=== PATIENT | female | born 1990 | race Caucasian/White ===

== ENCOUNTER 2016-12-14 23:10 | Emergency (ER) | payer BC ==
[~2016-12-14] VITALS: Ht 160 cm; Wt 51.7 kg
[~2016-12-14 23:10] MED LIST: CETI10CA19 PO; CIPR-213 PO; LACT1CAP79; NITR100C4 PO; OMEP20TA2 PO; PHEN-779 PO
--- OUTSIDE RECORDS SUMMARY | 2016-12-14 23:15 | XMS REPORT | Continuity of Care Document ---
Author Author [facility] Organization [facility] Address Unknown Phone Unavailable Support Name Relationship Address Phone MARLA BENNETT MD Caregiver [address] [place] [address] [place] [phone] BORIS WOODALL DO Caregiver [facility] [address] [place], [place] [id number] CHANNING COURTNEY Next Of Kin [address] [place], [place] [id number] Insurance Providers Payer Name Policy Number Subscriber Name Relationship Blue Cross Other [id number] Varsha Courtney 18 Self Blue Cross Federal [id number] Channing Courtney 19 Child Advance Directives Directive Response Recorded Date/Time Advanced Directives Type None 01/07/14 3:35am Problems Medical Problems Problem Onset Date Status Abdominal Pain unspecified site Unknown Active Diarrhea Unknown Active Vomiting Alone Unknown Active Abdominal Pain unspecified site Unknown Active Diarrhea Unknown Active Vomiting Alone Unknown Active Facial and Lip Swelling Unknown Active Alcoholic gastritis Unknown Active Abdominal pain Unknown Active GERD (gastroesophageal reflux disease) Unknown Active GERD (gastroesophageal reflux disease) Unknown Active Bacterial vaginitis Unknown Active Ovarian cyst Unknown Active Bacterial vaginitis Unknown Active Medications Medication Dose Route Sig Days/Qty Instructions Order Date Discontinued Date Status Ethinyl Estradiol/Drospirenone 08/01/08 10/23/10 Discontinued [Z-Pack] 08/01/08 04/18/09 Discontinued Cefdinir 1 Cap PO TWICE A DAY 10/23/10 04/18/11 Discontinued Norethindrone A-E Estradiol 1 Tab PO DAILY 10/23/10 02/23/12 Discontinued Meloxicam 7.5 Mg PO DAILY 04/18/11 09/18/11 Discontinued Norgestimate-Ethinyl Estradiol 1 Tab PO DAILY 02/23/12 Active Cranberry Extract 200 Mg PO DAILY 01/07/14 Active Multivitamins 1 Tab PO DAILY 01/07/14 Active Omeprazole Magnesium 1 Tab PO BEDTIME 10 Days 05/07/14 Active Famotidine 1 Tab PO TWICE A DAY 5 Days 05/07/14 Active Loratadine BEDTIME 05/14/14 Active Nitrofurantoin Monohyd/M-Cryst 1 Cap PO TWICE DAILY WITH MEALS Take 2 ( 100 mg) capsules, by mouth, twice daily with meals. 05/14/14 Active Metronidazole 500 Mg PO EVERY 12 HOURS 7 Days 05/14/14 Active Naproxen 500 Mg PO TWICE A DAY 20 Qty 05/14/14 Active Ondansetron 4 Mg PO Q6H/0300,0900,1500,2100 20 Qty Oral disintegrating tablet 05/14/14 Active Social History Social History Problem Response Recorded Date/Time Smoking Status Never smoker 01/07/2014 3:35am Hx Substance Use No 05/14/2014 11:13am Hx Alcohol Use Y social 05/14/2014 11:13am Query Response Start Date Stop Date Smoking Status Never smoker Hospital Discharge Instructions No hospital discharge instructions. Plan of Care No plan of care. Functional Status Query Response Date Recorded Physical Hygiene Self May 14, 2014 11:13am Disabilities None May 14, 2014 11:13am Devices Used None May 14, 2014 11:13am Dressing Self May 14, 2014 11:13am Ambulation Self May 14, 2014 11:13am Diet Self May 14, 2014 11:13am Mental Status Alert Oriented May 14, 2014 11:13am Disabilities None May 14, 2014 11:13am Devices Used None May 14, 2014 11:13am Physical Hygiene Self May 14, 2014 11:13am Dressing Self May 14, 2014 11:13am Ambulation Self May 14, 2014 11:13am Diet Self May 14, 2014 11:13am Allergies, Adverse Reactions, Alerts Allergen Type Severity Reaction Status Last Updated Sulfamethoxazole Allergy Unknown Active 05/14/14 Trimethoprim Allergy Unknown Active 05/14/14 Immunizations Name Given Type Hx Influenza Vaccination Y AUG 2013 Historical Hx Tetanus, Diptheria, Pertussis N UNSURE Historical Hx Influenza Vaccination Y AUG 2013 Historical Hx Tetanus, Diptheria, Pertussis N UNSURE Historical Vital Signs Acute Vital Signs Vital Response Date/Time Temperature (Fahrenheit) 97.6 deg F (96.8 - 99.1) Temperature (Calculated Celsius) 36.67759 degrees C (36.0 - 37.3) Pulse Rate (adult) 84 bpm (60 - 100) Respiratory Rate 20 breaths/min (10 - 20) Blood Pressure 100/57 mm Hg Height 5 ft 3 in Weight 112 lb Body Mass Index 19.0 kg/m^2 Results Test Source Date Result Interp. Ref. Range Comments Activated Partial Thromboplast Time May 07, 2014 10:04pm 26.3 SEC N 24-36 Ordering r/o VTE Yes Alanine Aminotransferase (ALT/SGPT) May 14, 2014 12:15pm 27 U/L N 9-52 Albumin May 14, 2014 12:15pm 4.5 G/DL N 3.5-5.0 Albumin/Globulin Ratio May 14, 2014 12:15pm 1.8 RATIO N 1.1-2.2 Alcohol, Quantitative January 07, 2014 4:15am 21 MG/DL - Alkaline Phosphatase May 14, 2014 12:15pm 50 U/L N 38-126 Amylase Level May 14, 2014 12:15pm 89 U/L N 30-110 Anion Gap May 14, 2014 12:15pm 14 MEQ/L N 5-15 Aspartate Amino Transf (AST/SGOT) May 14, 2014 12:15pm 21 U/L N 14 -36 BUN/Creatinine Ratio May 14, 2014 12:15pm 13 RATIO N 6-26 Band Neutrophils # May 06, 2013 12:10am 0.0 T/MM3 - Band Neutrophils % May 06, 2013 12:10am 0.0 % N 0-6 Basophils # (Auto) May 14, 2014 12:15pm 0.0 T/MM3 N 0-0.2 Basophils (%) (Auto) May 14, 2014 12:15pm 0.3 % N 0-2 Blood Urea Nitrogen May 14, 2014 12:15pm 10.0 MG/DL N 7-17 C-Reactive Protein August 01, 2008 9:45pm 56.2 MG/L H 0-9 Calcium Level May 14, 2014 12:15pm 10.0 MG/DL N 8.4-10.2 Calculated Osmolality May 14, 2014 12:15pm 275 MOSM/KG N 261-280 Carbon Dioxide Level May 14, 2014 12:15pm 26 MEQ/L N 22-30 Chemistry Specimen Hemolysis May 14, 2014 12:15pm < 15 0-25 0- 25: No Hemolysis.26-70: Slight Hemolysis - can falsely elevate K and Urine Protein. 71-285: Moderate Hemolysis - can falsely elevate K, Troponin I, CA 19-9, PTH, CSF GLucose, and Urine Protein, and can falsely decrease Phenytoin. 286-999: Gross Hemolysis - can falsely elevate K, Troponin I, CA 19-9, PTH, CSF Glucose, and Urine Protine, and can falsely decrease Phenytoin. Recommend specimen recollection. Chlamydia trachomatis Amplified DNA April 01, 2012 2:16am Ref lab rpt scanned - --- 04/04/12 1609 ---CHLAMDNA previously reported as: SENT OUT Chloride Level May 14, 2014 12:15pm 104 MEQ/L N 98-107 Creatinine May 14, 2014 12:15pm 0.8 MG/DL N 0.7-1.2 D-Dimer May 07, 2014 10:04pm 151 NG/ML N 0-224 <224 NG/ML= PRESUMPTIVE NEGATIVE FOR PE OR DVT>224 NG/ML=ADDITIONAL EVALUATION FOR PE OR DVT RECOMMENDED Eosinophils # (Auto) May 14, 2014 12:15pm 0.0 T/MM3 N 0-0.5 Eosinophils (%) (Auto) May 14, 2014 12:15pm 0.1 % N 0-4 Erythrocyte Sedimentation Rate August 01, 2008 9:45pm 17 MM/HR - Globulin May 14, 2014 12:15pm 2.5 G/DL N 2.4-3.6 Glomerular Filtration Rate Calc May 14, 2014 12:15pm 89 - Glucose Level May 14, 2014 12:15pm 79 MG/DL N 65-110 Hematocrit May 14, 2014 12:15pm 39.9 % N 36-46 Hemoglobin May 14, 2014 12:15pm 13.4 GM/DL N 12-16 Icterus Index May 14, 2014 12:15pm < 2 0-7 Immature Granulocyte # (Auto) May 14, 2014 12:15pm 0.01 T/MM3 N 0.00-0.03 Immature Granulocyte % (Auto) May 14, 2014 12:15pm 0.1 % N 0.0- 0.5 Lab Scanned Report April 04, 2012 4:14pm REFERENCE LAB [id number] - Lipase May 14, 2014 12:15pm 147 U/L N 23-300 Lymphocytes # (Auto) May 14, 2014 12:15pm 1.3 T/MM3 N 1-4.8 Lymphocytes # (Manual) May 06, 2013 12:10am 0.6 T/MM3 L 1-4.8 Lymphocytes % (Manual) May 06, 2013 12:10am 6.0 % L 23-45 Lymphocytes (%) (Auto) May 14, 2014 12:15pm 18.6 % L 23-45 Magnesium Level May 07, 2014 10:04pm 1.9 MG/DL N 1.6-2.3 Mean Corpuscular Hemoglobin May 14, 2014 12:15pm 30.9 UUG N 26-34 Mean Corpuscular Hemoglobin Concent May 14, 2014 12:15pm 33.6 GM/DL N 31-37 Mean Corpuscular Volume May 14, 2014 12:15pm 91.9 UM3 N 80-100 Mean Platelet Volume May 14, 2014 12:15pm 9.6 UM3 N 9.4-12.4 Monocytes # (Auto) May 14, 2014 12:15pm 0.8 T/MM3 N 0-0.8 Monocytes # (Manual) May 06, 2013 12:10am 0.6 T/MM3 N 0-0.8 Monocytes % (Manual) May 06, 2013 12:10am 6.0 % N 0-9.0 Monocytes (%) (Auto) May 14, 2014 12:15pm 11.0 % H 0-9.0 PI-Utq-C-Type Natriuretic Peptide May 07, 2014 10:04pm 68 PG/ML N 0-175 Rule in cut points: <50 years old=450; 50-75 years old=900; >75 years old=1800; When utilizing ProBNP rule-in cut points, adjustment for impaired renal function is typically not required. Neutrophils # (Auto) May 14, 2014 12:15pm 5.0 T/MM3 N 1.8-7.7 Neutrophils # (Manual) May 06, 2013 12:10am 8.7 T/MM3 H 1.8-7.7 Neutrophils % (Manual) May 06, 2013 12:10am 88.0 % H 33-66 Neutrophils (%) (Auto) May 14, 2014 12:15pm 69.9 % H 33-66 Platelet Count May 14, 2014 12:15pm 245 T/MM3 N 130-400 Potassium Level May 14, 2014 12:15pm 4.0 MEQ/L N 3.6-5 Prothromb Time International Ratio May 07, 2014 10:04pm 0.96 N 0.81-1.09 THERAPUTIC RANGE=2.00-3.00 FOR ANTI-THROMBOSIS THERAPUTIC RANGE=2.50 -3.50 FOR IMPLANTED VALVE RDW Standard Deviation May 14, 2014 12:15pm 40.0 FL N 36.9-50.2 Red Blood Count May 14, 2014 12:15pm 4.34 M/MM3 N 4.00-5.20 Sodium Level May 14, 2014 12:15pm 144 MEQ/L N 134-144 Total Bilirubin May 14, 2014 12:15pm 0.70 MG/DL N 0.20-1.30 Total Protein May 14, 2014 12:15pm 7.0 G/DL N 6.3-8.2 Troponin I May 07, 2014 10:04pm < 0.012 ng/ml 0-0.12 Turbidity May 14, 2014 12:15pm < 20 0-20 Urinalysis Comment May 14, 2014 12:00pm Microscopic not ind. - Has specimen been collected/obtained? Y Urine Bacteria March 10, 2012 3:48am 1+ H - Has specimen been collected/ obtained? Y Urine Bilirubin May 14, 2014 12:00pm Negative - Has specimen been collected/obtained? Y Urine Blood May 14, 2014 12:00pm Negative - Has specimen been collected/obtained? Y Urine Collection Type May 14, 2014 12:00pm Cleancatch-midstream - Has specimen been collected/obtained? Y Urine Color May 14, 2014 12:00pm Yellow - Has specimen been collected/obtained? Y Urine Culture Indicated May 24, 2012 11:52am Cult reflexed &setup - Has specimen been collected/obtained? Y Urine Glucose (UA) May 14, 2014 12:00pm Negative - Has specimen been collected/obtained? Y Urine Ketones May 14, 2014 12:00pm 1+ H - Has specimen been collected/obtained? Y Urine Leukocyte Esterase May 14, 2014 12:00pm Negative - Has specimen been collected/obtained? Y Urine Microscopic Not Indicated October 23, 2010 6:59pm Not indicated - Has specimen been collected/obtained? Y Urine Nitrite May 14, 2014 12:00pm Negative - Has specimen been collected/obtained? Y Urine Protein May 14, 2014 12:00pm Negative - Has specimen been collected/obtained? Y Urine RBC May 24, 2012 11:52am 5-10 /HPF H - Has specimen been collected/obtained? Y Urine Specific [place] May 14, 2014 12:00pm 1.010 L - Has specimen been collected/obtained? Y Urine Squamous Epithelial Cells May 24, 2012 11:52am Few - Has specimen been collected/obtained? Y Urine Turbidity May 14, 2014 12:00pm Clear - Has specimen been collected/obtained? Y Urine Urobilinogen May 14, 2014 12:00pm 0.2 EU/DL - Has specimen been collected/obtained? Y Urine WBC May 24, 2012 11:52am 5-10 /HPF H - Has specimen been collected/obtained? Y Urine pH May 14, 2014 12:00pm 6.0 - Has specimen been collected /obtained? Y White Blood Count May 14, 2014 12:15pm 7.1 T/MM3 N 4.5-11.0 Wet Prep Cervix May 14, 2014 1:05pm Urine Culture Urine, Clean Catch Voided May 24, 2012 12:09pm Escherichia Coli Name: VARSHA COURTNEY Unit #: [id number] : 1990 Sex: F Loc / Svc: ED DOS: 05/14/14 Signed Report #: [id number] DIAGNOSTIC IMAGING REPORT TYPE OF EXAM: US TRANSVAGINAL (NON-OB) Dictated By: ABRAM KHALIL MD INDICATION: ITS.REASON: abd pain, right side pain US TRANSVAGINAL (NON-OB): Comparison: CT abdomen and pelvis dated May 05, 2013 FINDINGS: Transvaginal and transabdominal pelvic imaging was performed. The uterus measures 7.5 x 2.9 x 4.2 cm. The parenchyma is homogeneous without fibroids. The endometrial stripe measures 2 mm in thickness. There is no evidence of focal endometrial mass. Both ovaries are identified. The right ovary measures 2.5 x 2.4 x 2.1 cm. The left ovary measures 3.8 x 2.6 x 2.7 cm. There are no abnormal adnexal masses detected. 3.3 cm simple appearing left ovarian cyst. Moderate free fluid in the pelvis. IMPRESSION: Probable ovarian cyst rupture otherwise unremarkable exam. . Procedures No known history of procedures. Encounters Encounter Location Date/Time Registered Emergency Room [facility] 05/14/14 10:59am Departed Emergency Room [facility] 05/07/14 9:14pm Recent Diagnosis
--- OUTSIDE RECORDS SUMMARY | 2016-12-14 23:15 | XMS REPORT | Continuity of Care Document ---
Author Author [facility] Organization [facility] Address Unknown Phone Unavailable Care Team Providers Care Decator Operator Name Role Phone BORIS WOODALL DO Primary Care Physician [phone] Insurance Providers Guarantor Varsha Fuentes Address [address] [place] [address] Email [email or web address] Payer Blue Cross Other Policy Number [id number] Subscriber's Name Varsha Fuentes Relationship 18 Self Group Number [id number] Advance Directives Directive Response Recorded Date/Time Advanced Directives Type None 01/07/14 3:35am Chief Complaint and Reason for Visit Chief Complaint Female Urogenital Problems Reason for Visit Dysuria Problems Active Problems Medical Problem Onset Date Status Abdominal Pain unspecified site Unknown Acute Abdominal Pain unspecified site Unknown Acute Abdominal pain Unknown Acute Alcoholic gastritis Unknown Acute Bacterial vaginitis Unknown Acute Bacterial vaginitis Unknown Acute Diarrhea Unknown Acute Diarrhea Unknown Acute Facial and Lip Swelling Unknown Acute GERD (gastroesophageal reflux disease) Unknown Acute GERD (gastroesophageal reflux disease) Unknown Acute Ovarian cyst Unknown Acute pain Unknown Acute Vomiting Alone Unknown Acute Vomiting Alone Unknown Acute Past Problems Medical Problem Onset Date Acute bronchitis Unknown Dysuria Unknown Dysuria Unknown Dysuria Unknown Gastroenteritis and colitis, viral Unknown Gastroenteritis and colitis, viral Unknown Headache Unknown Migraine Unknown Nausea Unknown Right middle ear infection Unknown Sinusitis Unknown UTI (urinary tract infection) Unknown Viral pharyngitis Unknown Medications Current Home Medications Medication Dose Units Route Directions Days Qty Instructions Start Date Cetirizine Hcl (Zyrtec) 10 Mg Capsule 1 Cap Oral Daily 02/18/16 Ciprofloxacin Hcl (Cipro) 250 Mg Tablet 250 Mg Oral Twice A Day 7 Days [address] Ignacio Olsen [employer] [facility] [facility] [address] [place] [address] 12/14/16 Lactobacillus Rhamnosus Gg (Culturelle) 1 Each Cap.sprink Daily 05/11/16 Omeprazole Magnesium (Prilosec Otc) 20 Mg Tablet. 1 Tab Oral Bedtime for Acid Reflux 02/18/16 Past Home Medications Medication Directions Ordered Status Cefdinir (Omnicef) 300 Mg Capsule, 1 Cap Oral Twice A Day 10/23/10 Discontinued Cranberry Extract (Cranberry) 200 Mg Capsule, 200 Mg Oral Daily 01/07/14 Discontinued Ethinyl Estradiol/Drospirenone (Ramila 28 Tablet) 1 Tab Tablet, 08/01/08 Discontinued Famotidine (Pepcid Ac) 20 Mg Tablet, 1 Tab Oral Twice A Day 05/07/14 Discontinued Loratadine (Claritin) 10 Mg Capsule, Bedtime 05/14/14 Discontinued Meloxicam (Mobic) 7.5 Mg Tablet, 7.5 Mg Oral Daily 04/18/11 Discontinued Metronidazole (Flagyl) 500 Mg Tablet, 500 Mg Oral Every 12 Hours 05/14/14 Discontinued Multivitamins (Multivitamin) 1 Tab Tablet, 1 Tab Oral Daily 01/07/14 Discontinued Naproxen 500 Mg Tablet, 500 Mg Oral Twice A Day 05/14/14 Discontinued Nitrofurantoin Monohyd/M-Cryst (Macrobid 100 Mg Capsule) 100 Mg Capsule, 1 Cap Oral Twice Daily With Meals 05/14/14 Discontinued Norethindrone A-E Estradiol (Loestrin) 1 Tab Tablet, 1 Tab Oral Daily Discontinued Omeprazole Magnesium (Prilosec Otc) 20 Mg Tablet., 1 Tab Oral Bedtime 05/07 Discontinued Ondansetron (Zofran Odt) 4 Mg Tab.rapdis, 4 Mg Oral Q6h/0300,0900,1500,2100 05/14/14 Discontinued Z-Pack , 08/01/08 Discontinued Social History Social History Problem Response Recorded Date/Time Onset Date Status Hx Substance Use No 05/11/2016 9:06am Not Applicable Not Applicable Hx Alcohol Use No 05/11/2016 9:06am Not Applicable Not Applicable Tobacco Usage none 05/08/2014 5:58am Not Applicable Not Applicable Query Response Start Date Stop Date Smoking Status Never smoker Hospital Discharge Instructions No hospital discharge instructions. Plan of Care Discharge Date 12/14/16 8:00pm Disposition 01 DISCHARGED HOME, SELF-CARE Condition at Discharge Stable Instructions/Education Provided Urinary Tract Infection in Women (ED) Prescriptions See Medication Section Referrals BORIS WOODALL DO Address: [address] [address] Additional Instructions/Education Take Cipro as directed. You may use Pyridium that you have not used in been prescribed in the past if needed. Increase her water intake. Follow with your primary care provider by phone tomorrow for recheck within the week. Functional Status No functional status results. Allergies, Adverse Reactions, Alerts No known allergies. Immunizations Query Response on File Recorded Date/Time Hx Influenza Vaccination Y AUG 2013 05/14/14 11:13am Hx Tetanus, Diptheria, Pertussis N UNSURE 05/14/14 11:13am Hx Influenza Vaccination Y AUG 2013 05/14/14 11:13am Hx Tetanus, Diptheria, Pertussis N UNSURE 05/14/14 11:13am Influenza Vaccine Hx 06/1412/14/16 7:39pm Tetanus Diptheria Vaccine History UP TO DATE 12/14/16 7:39pm Vital Signs Acute Vital Signs Vital Response Date/Time Temperature (Fahrenheit) 98.4 deg F (96.8 - 99.1) 12/14/2016 7:34pm Temperature (Calculated Celsius) 36.32896 degrees C (36.0 - 37.3) 12/14/2016 7:34pm Pulse Rate (adult) 75 bpm (60 - 100) 12/14/2016 7:34pm Respiratory Rate 16 breaths/min (10 - 20) 10/02/2016 2:51pm O2 Sat by Pulse Oximetry 99 % (90 - 100) 12/14/2016 7:34pm Blood Pressure 97/62 mm Hg 12/03/2016 3:06pm Height (Feet) 5 feet 12/03/2016 3:00pm Height (Inches) 63.00 inches 12/14/2016 7:34pm Weight (Kilograms) 61.900 kg 12/14/2016 7:34pm Body Mass Index (BMI) 24.0 12/14/2016 7:34pm Results Laboratory Results Test Name Result Units Flags Reference Collection Date/Time Result Date/ Time Comments Influenza Type A Antigen NEGATIVE NEGATIVE 10/02/2016 3:15pm 2016 3:21pm Negative for Flu A protein antigen. Assay sensitivity is 90%. Influenza Type B Antigen NEGATIVE NEGATIVE 10/02/2016 3:15pm 2016 3:21pm Negative for Flu B protein antigen. Assay sensitivity is 90%. Urine Collection Type CLEANCATCH-MIDSTREAM 12/14/2016 7:41pm 2016 7:46pm Urine Color YELLOW YELLOW 12/14/2016 7:41pm 12/14/2016 7:46pm Urine Turbidity CLOUDY CLEAR 12/14/2016 7:41pm 12/14/2016 7:46pm Urine Specific [place] 1.020 1.015-1.025 12/14/2016 7:41pm 2016 7:46pm Urine pH 6.0 5.0-8.0 12/14/2016 7:41pm 12/14/2016 7:46pm Urine Leukocyte Esterase 2+ A NEGATIVE 12/14/2016 7:41pm 12/14/2016 7: 46pm Urine Nitrite NEGATIVE NEGATIVE 12/14/2016 7:41pm 12/14/2016 7:46pm Urine Protein TRACE A NEGATIVE 12/14/2016 7:41pm 12/14/2016 7:46pm Urine Glucose (UA) NEGATIVE NEGATIVE 12/14/2016 7:41pm 12/14/2016 7: 46pm Urine Ketones NEGATIVE NEGATIVE 12/14/2016 7:41pm 12/14/2016 7:46pm Urine Urobilinogen 2.0 EU/DL NORMAL 12/14/2016 7:41pm 12/14/2016 7: 46pm Urine Bilirubin 1+ A NEGATIVE 12/14/2016 7:41pm 12/14/2016 7:46pm Urine Blood TRACE A NEGATIVE 12/14/2016 7:41pm 12/14/2016 7:46pm Procedures No known history of procedures. Encounters Encounter Location Arrival/Admit Date Discharge/Depart Date Attending Provider Departed Emergency Room [facility] 12/14/16 7:11pm 12/14/16 8: 00pm KATHE MURRAY APRN Departed Emergency Room [facility] 12/03/16 2:42pm 12/03/16 3: 24pm KATHE MURRAY APRN Departed Emergency Room [facility] 10/02/16 2:47pm 10/02/16 3: 24pm FER BOWLES APRN Recent Diagnosis
--- OUTSIDE RECORDS SUMMARY | 2016-12-14 23:15 | XMS REPORT | Continuity of Care Document ---
Author Author [facility] Organization [facility] Address Unknown Phone Unavailable Allergies Active Description Code Type Severity Reaction Onset Reported/Identified Relationship to Patient Clinical Status Yes No Known Allergies No Known Allergies Drug Allergy Unknown N/A 10/20/2015 Medications Problems Date Dx Coded Attending Type Code Diagnosis Diagnosed By 11/21/2015 Lacie CAI, Mario Taylor D62 ACUTE POSTHEMORRHAGIC ANEMIA 11/21/2015 Lacie CAI, Mario Taylor O70.0 FIRST DEGREE PERINEAL LACERATION DURING DELIVERY 11/21/2015 Mario Medellin MD O99.02 ANEMIA COMPLICATING CHILDBIRTH 11/21/2015 Mario Medellin MD Z34.93 ENCNTR FOR SUPRVSN OF NORMAL PREG, UNSP, THIRD TRIMESTER 11/21/2015 Mario Medellin MD Z37.0 SINGLE LIVE 11/21/2015 Mario Medellin MD Z3A.38 38 WEEKS GESTATION OF Procedures Code Description Performed By Performed On [id number] REPAIR PERINEUM SKIN, EXTERNAL APPROACH Mario Medellin MD 11/21/2015 [id number] DELIVERY OF PRODUCTS OF CONCEPTION, EXTERNAL APPRO Mario Medellin MD 11/21/2015 Results Test Result Range [place] - 10/20/15 14:45 Microbiology URINALYSIS, ROUTINE - 10/20/15 14:50 UA LEUKOCYTE ESTERASE DIPSTICK 1+ NEGATIVE UA NITRITE DIPSTICK NEGATIVE NEGATIVE UA PROTEIN DIPSTICK NEGATIVE NEGATIVE UA GLUCOSE DIPSTICK NEGATIVE NEGATIVE UA KETONE DIPSTICK NEGATIVE NEGATIVE UA UROBILINOGEN DIPSTICK NORMAL NORMAL UA BILIRUBIN DIPSTICK NEGATIVE NEGATIVE UA BLOOD DIPSTICK NEGATIVE NEGATIVE UA SPECIFIC GRAVITY 1.003 1.015-1.025 UR PH 6.5 5.0-7.0 UA MICROSCOPIC - 10/20/15 14:50 UA BACTERIA 2+ NEGATIVE UA EPITHELIAL CELLS 3+ epi/hpf 0 - 1+ UA RBC 0-3 rbc/hpf 0 - 3 UA VOLUME FOR EXAM 12.0 mL (12mL STD) UA WBC 2-5 wbc/hpf 0 - 5 WET M[place] - 10/29/15 13:11 Microbiology [place]ET M[place] - 11/02/15 21:45 Microbiology CBC - 11/21/15 18:44 MEAN CELL HGB 28.3 pg 27.0-33.0 MEAN CELL HGB CONCENTRATION 32.6 g/dL 32.0-37.0 MEAN CELL VOLUME 86.8 fl 80.0-100.0 RED BLOOD CELL 3.85 m/cumm 4.00-6.00 RED CELL DISTRIBUTION WIDTH 14.1 % 11.0- 15.6 WHITE BLOOD CELL 14.0 k/cumm 5.0-10.0 HEMOGLOBIN 10.9 gm/dL 12.0-16.0 HEMATOCRIT 33.4 % 37.0-47.0 PLATELET COUNT 288 k/cumm 150-400 CORD ARTERIAL BLOOD GAS - 11/21/15 23:25 ARTERIAL CORD BLD BASE EXCESS -7.7 meq/L -7.6-1.3 COMMENT ARTERIAL ARTERIAL CORD BICARBONATE 20.6 meq/L 16.0 -27.1 ARTERIAL CORD BLOOD PCO2 52 mm Hg 32-69 ARTERIAL CORD BLOOD PH 7.21 7.14-7.40 ARTERIAL CORD BLOOD PO2 22.9 mm Hg 8-33 ARTERIAL CORD BLOOD O2 SAT 30 % 5-59 CORD VENOUS BLOOD GAS - 11/21/15 23:25 VENOUS CORD BLOOD BASE EXCESS -4.9 meq/L -5.8-0.7 COMMENT VENOUS VENOUS CORD BLOOD HCO3 19.6 meq/L 17.4- 25.4 VENOUS CORD BLOOD PCO2 35 mm Hg 28-57 VENOUS CORD BLOOD PH 7.36 7.23-7.46 VENOUS CORD BLOOD PO2 30 mm Hg 15-42 VENOUS CORD BLOOD O2 SAT 62 % 14-75 HEMOGLOBIN - 11/22/15 04:40 MEAN CELL VOLUME 88.0 fl 80.0-100.0 HEMOGLOBIN 9.1 gm/dL 12.0-16.0 Encounters ACCT No. Visit Date/Time Discharge Status Pt. Type Provider Facility Loc./Unit Complaint [id number] 11/21/2015 18:52:00 2015 19:00:00 DIS Inpatient Lacie CAI, [facility] W.5 [id number] 11/02/2015 19:34:00 2015 23:11:00 DIS Emergency Lacie CAI, [facility] W.2WOBED [id number] 10/29/2015 11:29:00 2015 17:15:00 HAKEEM Medellin MD, [facility] W.2WOBED [id number] 10/20/2015 14:05:00 2015 15:53:00 HAKEEM Emergency Lacie CAI, [facility] Sylvain2WOBED
--- OUTSIDE RECORDS SUMMARY | 2016-12-14 23:15 | XMS REPORT | Continuity of Care Document ---
Author Author [facility] Organization [facility] Address Unknown Phone Unavailable Support Name Relationship Address Phone BORIS WOODALL DO Caregiver [facility] [address] [place], [place] [phone] JODY HIGGINS MD Caregiver [address] [place] [address] [place] [phone] CHANNING COURTNEY Next Of Kin [address] [place], [place] [phone] Insurance Providers Payer Name Policy Number Subscriber Name Relationship Blue Cross Other [id number] Varsha Courtney 18 Self Blue Cross Federal [id number] Channing Courtney 19 Child Advance Directives Directive [...] Active GERD (gastroesophageal reflux disease) Unknown Active Medications Medication Dose Route Sig Days/Qty Instructions Order Date Discontinued Date Status Ethinyl Estradiol/Drospirenone 08/01/08 10/23/10 Discontinued [Z-Pack] 08/01/08 04/18/09 Discontinued Cefdinir 1 Cap PO TWICE A DAY 10/23/10 04/18/11 Discontinued Norethindrone A-E Estradiol 1 Tab PO DAILY 10/23/10 02/23/12 Discontinued Meloxicam 7.5 Mg PO DAILY 04/18/11 09/18/11 Discontinued Norgestimate-Ethinyl Estradiol 1 Tab PO DAILY 02/23/12 Active Cetirizine Hcl 10 Mg PO DAILY 01/07/14 Active Cranberry Extract 200 Mg PO DAILY 01/07/14 Active Multivitamins 1 Tab PO DAILY 01/07/14 Active Omeprazole Magnesium 1 Tab PO BEDTIME 10 Days 05/07/14 Active Famotidine 1 Tab PO TWICE A DAY 5 Days 05/07/14 Active Social History Social History Problem Response Recorded Date/Time Smoking Status Never smoker 01/07/2014 3:35am Chewing Tobacco Status No 05/07/2014 9:45pm Hx Substance Use No 05/07/2014 9:45pm Hx Alcohol Use Y social 05/07/2014 9:45pm Query Response Start Date Stop Date Smoking Status Never smoker Hospital Discharge Instructions No hospital discharge instructions. Plan of Care No plan of care. Functional Status Query Response Date Recorded Physical Hygiene Self May 07, 2014 9:45pm Disabilities Visual May 07, 2014 9:45pm Devices Used Glasses May 07, 2014 9:45pm Dressing Self May 07, 2014 9:45pm Ambulation Self May 07, 2014 9:45pm Diet Self May 07, 2014 9:45pm Mental Status Alert May 07, 2014 10:47pm Disabilities Visual May 07, 2014 9:45pm Devices Used Glasses May 07, 2014 9:45pm Physical Hygiene Self May 07, 2014 9:45pm Dressing Self May 07, 2014 9:45pm Ambulation Self May 07, 2014 9:45pm Diet Self May 07, 2014 9:45pm Allergies, Adverse Reactions, Alerts Allergen Type Severity Reaction Status Last Updated Sulfamethoxazole Allergy Unknown Active 01/07/14 Trimethoprim Allergy Unknown Active 05/05/13 Immunizations Name Given Type Hx Influenza Vaccination Y AUG 2013 Historical Hx Tetanus, Diptheria, Pertussis N UNSURE Historical Hx Influenza Vaccination Y AUG 2013 Historical Hx Tetanus, Diptheria, Pertussis N UNSURE Historical Vital Signs Acute Vital Signs Vital Response Date/Time Temperature (Fahrenheit) 97.8 deg F (96.8 - 99.1) Temperature (Calculated Celsius) 36.90436 degrees C (36.0 - 37.3) Pulse Rate (adult) 68 bpm (60 - 100) Respiratory Rate 18 breaths/min (10 - 20) O2 Sat by Pulse Oximetry 99 % (90 - 100) Blood Pressure 130/70 mm Hg Height 5 ft 3 in Weight 114 lb Body Mass Index 20.0 kg/m^2 Results Test Source Date Result Interp. Ref. Range Comments Activated Partial Thromboplast Time May 07, 2014 10:04pm 26.3 SEC N 24-36 Ordering r/o VTE Yes Alanine Aminotransferase (ALT/SGPT) May 07, 2014 10:04pm 28 U/L N 9-52 Albumin May 07, 2014 10:04pm 4.1 G/DL N 3.5-5.0 Albumin/Globulin Ratio May 07, 2014 10:04pm 1.6 RATIO N 1.1-2.2 Alcohol, Quantitative January 07, 2014 4:15am 21 MG/DL - Alkaline Phosphatase May 07, 2014 10:04pm 47 U/L N 38-126 Amylase Level May 06, 2013 12:10am 61 U/L DN 30-110 Anion Gap May 07, 2014 10:04pm 12 MEQ/L N 5-15 Aspartate Amino Transf (AST/SGOT) May 07, 2014 10:04pm 22 U/L N 14 -36 BUN/Creatinine Ratio May 07, 2014 10:04pm 14 RATIO N 6-26 Band Neutrophils # May 06, 2013 12:10am 0.0 T/MM3 - Band Neutrophils % May 06, 2013 12:10am 0.0 % N 0-6 Basophils # (Auto) May 07, 2014 10:04pm 0.0 T/MM3 N 0-0.2 Basophils (%) (Auto) May 07, 2014 10:04pm 0.1 % N 0-2 Blood Urea Nitrogen May 07, 2014 10:04pm 10.0 MG/DL N 7-17 C-Reactive Protein August 01, 2008 9:45pm 56.2 MG/L H 0-9 Calcium Level May 07, 2014 10:04pm 9.7 MG/DL N 8.4-10.2 Calculated Osmolality May 07, 2014 10:04pm 269 MOSM/KG N 261-280 Carbon Dioxide Level May 07, 2014 10:04pm 26 MEQ/L N 22-30 Chloride Level May 07, 2014 10:04pm 103 MEQ/L N 98-107 Creatinine May 07, 2014 10:04pm 0.7 MG/DL N 0.7-1.2 D-Dimer May 07, 2014 10:04pm 151 NG/ML N 0-224 <224 NG/ML= PRESUMPTIVE NEGATIVE FOR PE OR DVT>224 NG/ML=ADDITIONAL EVALUATION FOR PE OR DVT RECOMMENDED Eosinophils # (Auto) May 07, 2014 10:04pm 0.1 T/MM3 N 0-0.5 Eosinophils (%) (Auto) May 07, 2014 10:04pm 0.7 % N 0-4 Erythrocyte Sedimentation Rate August 01, 2008 9:45pm 17 MM/HR - Globulin May 07, 2014 10:04pm 2.5 G/DL N 2.4-3.6 Glucose Level May 07, 2014 10:04pm 85 MG/DL N 65-110 Hematocrit May 07, 2014 10:04pm 37.7 % N 36-46 Hemoglobin May 07, 2014 10:04pm 12.6 GM/DL N 12-16 Lipase January 07, 2014 4:15am 139 U/L N 23-300 Lymphocytes # (Auto) May 07, 2014 10:04pm 2.3 T/MM3 N 1-4.8 Lymphocytes # (Manual) May 06, 2013 12:10am 0.6 T/MM3 L 1-4.8 Lymphocytes % (Manual) May 06, 2013 12:10am 6.0 % L 23-45 Lymphocytes (%) (Auto) May 07, 2014 10:04pm 31.9 % N 23-45 Magnesium Level May 07, 2014 10:04pm 1.9 MG/DL N 1.6-2.3 Mean Corpuscular Hemoglobin May 07, 2014 10:04pm 30.7 UUG N 26-34 Mean Corpuscular Hemoglobin Concent May 07, 2014 10:04pm 33.4 GM/DL N 31-37 Mean Corpuscular Volume May 07, 2014 10:04pm 91.7 UM3 N 80-100 Mean Platelet Volume May 07, 2014 10:04pm 9.4 UM3 N 9.4-12.4 Monocytes # (Auto) May 07, 2014 10:04pm 0.7 T/MM3 N 0-0.8 Monocytes # (Manual) May 06, 2013 12:10am 0.6 T/MM3 N 0-0.8 Monocytes % (Manual) May 06, 2013 12:10am 6.0 % N 0-9.0 Monocytes (%) (Auto) May 07, 2014 10:04pm 9.2 % H 0-9.0 Neutrophils # (Auto) May 07, 2014 10:04pm 4.2 T/MM3 N 1.8-7.7 Neutrophils # (Manual) May 06, 2013 12:10am 8.7 T/MM3 H 1.8-7.7 Neutrophils % (Manual) May 06, 2013 12:10am 88.0 % H 33-66 Neutrophils (%) (Auto) May 07, 2014 10:04pm 58.0 % N 33-66 Platelet Count May 07, 2014 10:04pm 221 T/MM3 N 130-400 Potassium Level May 07, 2014 10:04pm 3.8 MEQ/L N 3.6-5 Prothromb Time International Ratio May 07, 2014 10:04pm 0.96 N 0.81-1.09 THERAPUTIC RANGE=2.00-3.00 FOR ANTI-THROMBOSIS THERAPUTIC RANGE=2.50 -3.50 FOR IMPLANTED VALVE RDW Standard Deviation May 07, 2014 10:04pm 39.3 FL N 36.9-50.2 Red Blood Count May 07, 2014 10:04pm 4.11 M/MM3 N 4.00-5.20 Sodium Level May 07, 2014 10:04pm 141 MEQ/L N 134-144 Total Bilirubin May 07, 2014 10:04pm 0.40 MG/DL N 0.20-1.30 Total Protein May 07, 2014 10:04pm 6.6 G/DL N 6.3-8.2 Troponin I May 07, 2014 10:04pm < 0.012 ng/ml 0-0.12 Urine Bacteria March 10, 2012 3:48am 1+ H - Has specimen been collected/ obtained? Y Urine Bilirubin May 07, 2014 9:40pm Negative - Has specimen been collected/obtained? Y Urine Blood May 07, 2014 9:40pm Negative - Has specimen been collected/obtained? Y Urine Collection Type May 07, 2014 9:40pm Voided-not cc-midstr - Has specimen been collected/obtained? Y Urine Color May 07, 2014 9:40pm Yellow - Has specimen been collected/obtained? Y Urine Culture Indicated May 24, 2012 11:52am Cult reflexed &setup - Has specimen been collected/obtained? Y Urine Glucose (UA) May 07, 2014 9:40pm Negative - Has specimen been collected/obtained? Y Urine Ketones May 07, 2014 9:40pm Negative - Has specimen been collected/obtained? Y Urine Leukocyte Esterase May 07, 2014 9:40pm Negative - Has specimen been collected/obtained? Y Urine Nitrite May 07, 2014 9:40pm Negative - Has specimen been collected/obtained? Y Urine Protein May 07, 2014 9:40pm Negative - Has specimen been collected/obtained? Y Urine RBC May 24, 2012 11:52am 5-10 /HPF H - Has specimen been collected/obtained? Y Urine Specific [place] May 07, 2014 9:40pm 1.010 L - Has specimen been collected/obtained? Y Urine Squamous Epithelial Cells May 24, 2012 11:52am Few - Has specimen been collected/obtained? Y Urine Turbidity May 07, 2014 9:40pm Clear - Has specimen been collected/obtained? Y Urine Urobilinogen May 07, 2014 9:40pm 0.2 EU/DL - Has specimen been collected/obtained? Y Urine WBC May 24, 2012 11:52am 5-10 /HPF H - Has specimen been collected/obtained? Y Urine pH May 07, 2014 9:40pm 6.0 - Has specimen been collected/ obtained? Y White Blood Count May 07, 2014 10:04pm 7.3 T/MM3 N 4.5-11.0 Chemistry Specimen Hemolysis May 07, 2014 10:04pm < 15 0-25 0- 25: No Hemolysis.26-70: [...] can falsely decrease Phenytoin. Recommend specimen recollection. Urinalysis Comment May 07, 2014 9:40pm Microscopic not ind. - Has specimen been collected/obtained? Y Lab Scanned Report April 04, 2012 4:14pm REFERENCE LAB [id number] - Chlamydia trachomatis Amplified DNA April 01, 2012 2:16am Ref lab rpt scanned - --- 04/04/12 1609 ---CHLAMDNA previously reported as: SENT OUT Turbidity May 07, 2014 10:04pm < 20 0-20 Glomerular Filtration Rate Calc May 07, 2014 10:04pm 104 - Immature Granulocyte # (Auto) May 07, 2014 10:04pm 0.01 T/MM3 N 0.00-0.03 Immature Granulocyte % (Auto) May 07, 2014 10:04pm 0.1 % N 0.0- 0.5 Icterus Index May 07, 2014 10:04pm < 2 0-7 OF-Bzp-R-Type Natriuretic Peptide May 07, 2014 10:04pm 68 PG/ML N 0-175 Rule in cut points: <50 years old=450; 50-75 years old=900; >75 years old=1800; When utilizing ProBNP rule-in cut points, adjustment for impaired renal function is typically not required. Urine Microscopic Not Indicated October 23, 2010 6:59pm Not indicated - Has specimen been collected/obtained? Y Wet Prep Cervix April 01, 2012 2:16am Urine Culture Urine, Clean Catch Voided May 24, 2012 12:09pm Escherichia Coli Procedures No known history of procedures. Encounters Encounter Location Date/Time Departed Emergency Room [facility] 05/07/14 9:14pm Recent Diagnosis
[2016-12-14 23:20] VITALS: Ht 160 cm; Wt 51.7 kg
--- NOTE | 2016-12-14 23:30 | NUR ---
PROVIDER DR DUPREE IN ROOM TO SEE PT
[2016-12-14] MEDS ORDERED: DiphenhydrAMINE 50 MG/ML INJECTION IV ONE (23:45)
[2016-12-14] MEDS ORDERED: NORMAL SALINE 1,000 ML IV ONE (23:45)
[2016-12-14] MEDS ORDERED: FAMOTIDINE 20 MG in NORMAL SALINE 50 ML IV ONE (23:45)
--- NOTE | 2016-12-15 00:11 | NUR ---
BRP Pt ambulatory to BR with help of this nurse, ambulates with ease.
--- NOTE | 2016-12-15 00:30 | NUR ---
STATUS PT RASH HAS PINKED UP, LIPS SWELLING IS DECREASED. PT REPORTS FEELING BETTER AND DECREASE WITH ITCHING
[2016-12-15] MEDS ORDERED: FAMO-137 PO (01:02)
[2016-12-15] MEDS ORDERED: PRED50TA PO (01:02)
[2016-12-15] MEDS ORDERED: CEPH-583 PO (01:02)
--- NOTE | 2016-12-15 01:02 | ERPDOC ---
Departure Disposition Decision Date: Dec 15, 2016 Disposition Decision Time: 00:59 Disposition: 01 DISCHARGED HOME, SELF-CARE Impression Impression Impression: Primary Impression: Allergic reaction Encounter type: initial encounter Qualified Codes: T78.40XA - Allergy, unspecified, initial encounter Severity: Mild Condition: Improved Seen By: Physician only Referrals: BORIS WOODALL DO (PCP/Family) 2 Days Patient Instructions: General Allergic Reaction (ED) Problems/Meds/Labs Reviewed?: Yes Medications reviewed and manag: Yes Follow up care ordered?: Yes Mental Status: Alert, Oriented Scripts Famotidine (Pepcid) 20 Mg Tablet 1 TAB PO BID for 10 Days, #20 TAB 0 Refills Prov: MICHAELA DUPREE DO 12/15/16 Prednisone (Prednisone) 50 Mg Tablet 50 MG PO WB for 5 Days, #5 TAB 0 Refills Take 1 tablet, by mouth, once a day with breakfast. Prov: MICHAELA DUPREE DO 12/15/16 Cephalexin (Keflex) 500 Mg Capsule 1 CAP PO TID for 10 Days, #30 CAP 0 Refills Prov: MICHAELA DUPREE DO 12/15/16 HPI - Skin General General Chief Complaint: Allergic Reaction Stated Complaint: ALLERGIC REACTION Time Seen by Provider: 23:37 Source: patient Exam Limitations: no limitations HPI - Skin General Initial Comments 26-year-old female presents to the emergency department with a chief complaint of an ALLERGIC reaction. Patient was seen at the [facility] and prescribed Cipro for treatment of potential urinary tract infection. She took the 1st dose of Cipro earlier today. Patient noted onset of generalized urticarial hives after taking the Cipro. This was earlier today. Symptoms have been persistent in nature since onset. Symptoms have been gradual in progression in nature. She denies any pain does note moderate itching with the hives. She does not note anything that makes the symptoms any better or any worse that she did not attempted any intervention prior to arrival to the emergency department today. No other complaints or associated symptoms. No intraoral involvement. Occurred At: home Onset: Gradual Allergies: Coded Allergies: No Known Allergies (Unverified , 12/14/16) Past History Past Medical History ENMT: allergies Hx Echocardiogram: No GI: GERD Female: UTI Neurological: headaches Surgical History Denies Surgeries Joint: shoulder Family History Family History: Negative Vaccines Hx Influenza Vaccination: Yes (AUG 2013) Hx Tetanus, Diptheria, Pertuss: No (UNSURE) Social History Smoking Status: Never smoker Substance Use Type: does not use Alcohol Intake: none Sexuality: male partner Review of Systems Constitutional Constitutional: DENIES: chills, fever Eyes General: DENIES: erythema, exudate Lids/Accessories: DENIES: erythema, swelling Vision: DENIES: acuity, blurring ENMT Ears: DENIES: drainage, erythema Hearing: DENIES: hearing loss Balance: DENIES: ataxia, falling to one side Sinuses: DENIES: congestion, pain Nose: DENIES: nosebleeds Mouth/Throat: DENIES: painful swallowing, sore throat Teeth: DENIES: pain Jaw: DENIES: pain Cardiovascular Cardiac: DENIES: chest pain, dyspnea on exertion Rhythm/Rate: DENIES: irregular beat, palpitations Vascular: DENIES: pedal edema, unilateral swelling Pulmonary Respiratory: DENIES: cough, dyspnea, sputum GI Upper Abdomen: DENIES: nausea, pain, vomiting Lower Abdomen: DENIES: diarrhea, pain General: DENIES: dysuria, frequency Musculoskeletal General: DENIES: joint pain, tenderness Integumentary Skin: itching, DENIES: rash Neurological General: DENIES: headache, numbness, weakness Psychiatric Psychiatric: DENIES: emotional instability, suicidal ideation/attempt Endocrine Endocrine: DENIES: polydipsia, polyphagia Hematologic/Lymphatic Hematologic/Lymphatic: DENIES: frequent nosebleeds, lymphadenopathy Allergic/Immunological Allergic/Immunoligical: DENIES: allergic reactions, hives Physical Exam General General Nourishment: well nourished, well developed, appears stated age, no acute distress, adult General Body Habitus: well groomed Vitals and Pain Weight: Kilograms: Height (feet): 5 Height (inches): 63.00 Triage Pain Scale: RN VS reviewed by Provider: Yes Normal Exams: Head: Normocephalic w/o trauma Eyes: Pupils are PERRLA w/ EOMI, No scleral icterus, irritation, or foreign bodies noted ENMT: No facial trauma, nasal exudates, pharyngeal erythema, or exudates are noted Dental: No fractured, loose, or missing teeth noted Neck: Full range of motion, without adenopathy, JVD, bruits or thyromegaly Chest/Resp: Clear all sanchez, with good airflow, and symmetry bilaterally CV: Regular rate and rhythm, without murmur or gallop, Pulses 2+ all extremities, capillary refill, <2 seconds all ext., no pedal edema noted Abdomen: Bowel sounds positive, soft, non-tender, non-distended, no hepatosplenomegaly, masses or bruits noted Lymphatic: No lymphadenopathy, or lymphedema noted Musculoskeletal: No tenderness, or deformity noted, good range of motion, all extremities Integumentary: No rashes, or bruising noted, hair and nails, without abnormality Neurologic: Patient is alert, and oriented, cranial nerves, motor/sensory/ cerebellar, exams w/o gross deficits, to observation Psychiatric: Patient exhibits, appropriate attention, emotion and affect Integumentary (brief) Comments Generalized urticarial lesions consistent with hives noted. Lesions ermias with pressure. No sign of secondary infection. Differential Diagnoses Considering: Contact Dermatitis, Eczema, Hives/Urticaria, Viral Exanthem Progress Results/Orders Orders Procedure Category Date Status Time Iv Lock (Ed Only) EDM 12/14/16 Transmitted 23:37 Methylprednisolone PHA 12/14/16 Complete Sod Succ (Solu-Medrol 23:45 Famotidine (Pepcid 20 PHA 12/14/16 Complete Mg Inj.) 23:45 Diphenhydramine PHA 12/14/16 Complete (Benadryl) 23:45 Normal Saline (Normal PHA 12/14/16 Complete Saline Iv) 23:45 Medications Current ED Medications Methylprednisolone Sodium Succinate 125 mg 125 mg O ONCE IV Last administered on 12/14/16 23:48; Start 12/14/16 at 23:45; Stop 12/14/16 at 23:46; Status DC Famotidine/Sodium Chloride (PEPCID 20 mg INJ./NS) 52 ml @ 100 mls/hr O ONCE IV Last administered on 12/14/16 23:52; Start 12/14/16 at 23:45; Stop at 00:16; Status DC Diphenhydramine HCl 50 mg 50 mg O ONCE IV Last administered on 12/14/16 23:44 ; Start 12/14/16 at 23:45; Stop 12/14/16 at 23:46; Status DC Sodium Chloride (Normal Saline IV) 1,000 ml @ 999 mls/hr Q1H1M ONCE IV Last administered on 12/14/16 23:44; Start 12/14/16 at 23:45; Stop 12/15/16 at 00:45 ; Status DC Progress Progress Patient was given Solu-Medrol 125 mg IV 1, Benadryl 50 mg IV 1, and Pepcid 20 mg IV times one. Patient was given 1 L normal saline intravenously. Patient is monitored in the emergency department for a safe timeframe and discharged home in improved condition. Patient is markedly improved with resolution of the hives upon discharge. She is instructed to stop the Cipro and provided with a prescription for Keflex for UTI. She is in agreement with the current plan of management. Patient is provided with prescriptions for prednisone and Pepcid. She is use Benadryl 25 mg by mouth every 6 hours for the next 24 hours. Patient is in agreement with the current plan of management. She is discharged home in improved condition. Patient is to follow up as instructed. She is to return to the emergency Department if her condition worsens or changes in any manner. MICHAELA DUPREE DO Dec 15, 2016 01:02
[2016-12-15 01:16] VITALS: BP 118/66; PULSE 87; RESP 18; TEMP 99.1; O2SAT 97
--- NOTE | 2016-12-15 01:16 | NUR ---
DEPART PT IS GIVEN DISMISAL INSTRUCTIONS WITH VERBAL UNDERSTANDING. SCRIPTS SENT WITH PT. PT AMBULATORY TO ED REGISTRATION DESK.
--- OUTSIDE RECORDS SUMMARY | 2016-12-15 01:26 | XMS REPORT | Continuity of Care Document ---
Author Author [facility] Organization [facility] Address Unknown Phone Unavailable Support Name Relationship Address Phone BORIS WOODALL DO Caregiver [facility] [address] [place], [place] [phone] JODY HIGGINS MD Caregiver [address] [place] [address] [place] [phone] CHANNING COURTNEY Next Of Kin [address] [place], [place] [phone] Insurance Providers Payer Name Policy Number Subscriber Name Relationship Blue Cross Other [id number] Varsha Courtney 18 Self Blue Cross Federal [id number] Channing Courtney 19 Child Advance Directives Directive [...] F (96.8 - 99.1) Temperature (Calculated Celsius) 36.33136 degrees C (36.0 - 37.3) Pulse Rate [...] Has specimen been collected/obtained? Y Urine Specific [place] May 07, 2014 9:40pm 1.010 L - [...] Report April 04, 2012 4:14pm REFERENCE LAB [id number] - Chlamydia trachomatis Amplified DNA April 01, [...] May 07, 2014 10:04pm < 2 0-7 GC-Bna-E-Type Natriuretic Peptide May 07, 2014 10:04pm 68 [...] Encounters Encounter Location Date/Time Departed Emergency Room [facility] 05/07/14 9:14pm Recent Diagnosis
--- OUTSIDE RECORDS SUMMARY | 2016-12-15 01:26 | XMS REPORT | Continuity of Care Document ---
Author Author Organization Address Unknown Phone Unavailable Allergies Active Description [...] Procedures Code Description Performed By Performed On [id number] REPAIR PERINEUM SKIN, EXTERNAL APPROACH Mario Medellin MD 11/21/2015 [id number] DELIVERY OF PRODUCTS OF CONCEPTION, EXTERNAL APPRO [...] Status Pt. Type Provider Facility Loc./Unit Complaint [id number] 11/21/2015 18:52:00 2015 19:00:00 DIS Inpatient Lacie CAI, [facility] W.5 [id number] 11/02/2015 19:34:00 2015 23:11:00 DIS Emergency Lacie CAI, [facility] W.2WOBED [id number] 10/29/2015 11:29:00 2015 17:15:00 HAKEEM Medellin MD, [facility] W.2WOBED [id number] 10/20/2015 14:05:00 2015 15:53:00 HAKEEM Emergency Lacie CAI, [facility] Sylvain2WOBED
--- OUTSIDE RECORDS SUMMARY | 2016-12-15 01:26 | XMS REPORT | Continuity of Care Document ---
Author Author [facility] Organization [facility] Address Unknown Phone Unavailable Support Name Relationship Address Phone MARLA BENNETT MD Caregiver [address] [place] [address] [place] [phone] BORIS WOODALL DO Caregiver [facility] [address] [place], [place] [phone] CHANNING COURTNEY Next Of Kin [address] [place], [place] [phone] Insurance Providers Payer Name Policy Number Subscriber Name Relationship [employer] Cross Other [id number] Varsha Courtney 18 Self [employer] Cross Federal [id number] Channing Courtney 19 Child Advance Directives Directive [...] F (96.8 - 99.1) Temperature (Calculated Celsius) 36.52298 degrees C (36.0 - 37.3) Pulse Rate [...] Report April 04, 2012 4:14pm [facility] LAB [id number] - Lipase May 14, 2014 12:15pm 147 [...] 14, 2014 12:15pm 11.0 % H 0-9.0 YY-Rdp-V-Type Natriuretic Peptide May 07, 2014 10:04pm 68 [...] Has specimen been collected/obtained? Y Urine Specific [place] May 14, 2014 12:00pm 1.010 L - [...] Escherichia Coli Name: VARSHA COURTNEY Unit #: [id number] : 1990 Sex: F Loc / Svc: ED DOS: 05/14/14 Signed Report #: [id number] DIAGNOSTIC IMAGING REPORT TYPE OF EXAM: US [...] Encounters Encounter Location Date/Time Registered Emergency Room [facility] 05/14/14 10:59am Departed Emergency Room [facility] 05/07/14 9:14pm Recent Diagnosis
== END 2016-12-15 01:16 | disposition home or self-care (01) ==
LOC: ED 23:10
DX: L50.0 Allergic urticaria (principal); T36.8X5A Adverse effect of other systemic antibiotics, initial encounter; Y92.009 Unspecified place in unspecified non-institutional (private) residence as the place of occurrence of the external cause
CPT/HCPCS: 96361; 96365; 96375; 99284; J1200; J2930; J7030; J7050